=== PATIENT | female | born 1995 | race Caucasian/White ===

== ENCOUNTER 2017-05-19 02:13 | Emergency (ER) | payer OTHER ==
[~2017-05-19] VITALS: Ht 157.5 cm; Wt 63.6 kg
[2017-05-19 02:22] VITALS: BP 112/66
[2017-05-19] MEDS ORDERED: OLAN10TA3 PO (02:26)
[2017-05-19] MEDS ORDERED: OLAN5TAB2 PO (02:26)
[2017-05-19] MEDS ORDERED: OMEP20 PO (02:26)
[2017-05-19] MEDS ORDERED: VALP250 PO (02:26)
[2017-05-19] MEDS ORDERED: HALO100V4 IM (02:26)
[2017-05-19] MEDS ORDERED: DOCU250C91 PO (02:26)
[2017-05-19] MEDS ORDERED: BENZ1TAB10 PO (02:26)
[2017-05-19] MEDS ORDERED: VITAD1000 PO (02:26)
== END 2017-05-19 03:47 | disposition home or self-care (01) ==
LOC: EMS 02:15
DX: S16.1XXA Strain of muscle, fascia and tendon at neck level, initial encounter (principal); S09.90XA Unspecified injury of head, initial encounter; S80.212A Abrasion, left knee, initial encounter; F20.9 Schizophrenia, unspecified; Y04.0XXA Assault by unarmed brawl or fight, initial encounter; Y93.89 Activity, other specified; Y92.89 Other specified places as the place of occurrence of the external cause; Y99.8 Other external cause status
CPT/HCPCS: 99283

== ENCOUNTER 2018-01-11 22:19 | Emergency (ER) | payer OTHER ==
[~2018-01-11] VITALS: Ht 160 cm; Wt 77.3 kg
[~2018-01-11 22:19] MED LIST: BENZ1TAB10 PO; DOCU250C91 PO; HALO100V4 IM; OLAN10TA3 PO; OLAN5TAB2 PO; OMEP20 PO; VALP250 PO; VITAD1000 PO
[2018-01-11] MEDS ORDERED: PROPARACAINE HCL 0.5% 15 ML OPHTHALMIC SOLUTION OD ONE (22:45)
[2018-01-11] MEDS ORDERED: FLUORESCEIN SODIUM 1 MG STRIP ONE (22:55)
[2018-01-11 23:33] VITALS: BP 111/57
== END 2018-01-12 00:13 | disposition home or self-care (01) ==
LOC: EMS 22:19
DX: S05.01XA Injury of conjunctiva and corneal abrasion without foreign body, right eye, initial encounter (principal); R07.9 Chest pain, unspecified; F20.9 Schizophrenia, unspecified; Y08.89XA Assault by other specified means, initial encounter; Y93.89 Activity, other specified; Y92.89 Other specified places as the place of occurrence of the external cause; Y99.8 Other external cause status

== ENCOUNTER 2018-01-16 22:33 | Emergency (ER) | payer OTHER ==
[~2018-01-16] VITALS: Ht 172.7 cm; Wt 77.3 kg
[2018-01-16] MEDS ORDERED: DIPH50 PO (23:24)
[2018-01-16] MEDS ORDERED: LORA2TAB2 PO (23:24)
[2018-01-16] MEDS ORDERED: CILO2.5OS OD (23:24)
[2018-01-16] MEDS ORDERED: TRAZ-219 PO (23:25)
[2018-01-16] MEDS ORDERED: VALP250 PO (23:25)
[2018-01-16 23:36] LABS: BASOPHILS % (AUTO) 0.6 % (0.0-2.0); EOSINOPHILS % (AUTO) 0.3 % (1.0-6.0); HEMATOCRIT 39.6 % (36-46); HEMOGLOBIN 13.7 g/dL (12.0-16.0); LYMPHOCYTES # (AUTO) 3.2 K/uL (1.0-4.8); LYMPHOCYTES % (AUTO) 34.1 % (22.0-44.0); MEAN CORPUSCULAR HEMOGLOBIN 32.1 pg (26.0-34.0); MEAN CORPUSCULAR HGB CONC 34.7 G/dL (31.0-37.0); MEAN CORPUSCULAR VOLUME 93 fL (80-100); MONOCYTES # (AUTO) 0.8 K/uL (0.1-1.0); MONOCYTES % (AUTO) 8.6 % (2.0-9.0); NEUTROPHILS # (AUTO) 5.4 K/uL (1.8-7.7); NEUTROPHILS % (AUTO) 56.4 % (40.0-70.0); PLATELET COUNT (AUTO) 297 K/uL (150-450); RED BLOOD CELL COUNT(AUTO) 4.27 MIL/uL (4.00-5.20); RED CELL DISTRIBUTION WIDTH 13.6 % (11.5-14.5)
[2018-01-16 23:45] LABS: ANION GAP 8 mmol/L (8-16); CALCIUM, TOTAL 8.6 mg/dL (8.8-10.5); CARBON DIOXIDE 28 mmol/L (22-29); CHLORIDE 105 mmol/L (98-107); CREATININE 0.77 mg/dL (0.60-1.30); GLOMERULAR FILTR. RATE CALC > 60 mL/min (>60); GLUCOSE,RANDOM 106 mg/dL (70-110); SODIUM SERUM 141 mmol/L (136-145); UREA NITROGEN, BLOOD 6 mg/dL (7-18)
[2018-01-17 00:05] LABS: ALANINE AMINOTRANSFERASE 22 U/L (12-78); ALBUMIN 3.7 g/dL (3.4-5.0); ALKALINE PHOSPHATASE 81 U/L (46-116); ASPARTATE AMINOTRANSFERASE 18 U/L (15-37); BILIRUBIN,TOTAL 0.1 mg/dL (0.1-1.0); HCG,QUANTITATIVE < 1 mIU/mL (0-6); TOTAL PROTEIN, SERUM 7.3 g/dL (6.4-8.2); VALPROIC ACID 94 mcg/mL (50-100)
[2018-01-17 01:22] LABS: AMPHET/METH SCREEN,URINE NEGATIVE (NEGATIVE); BARBITURATE SCREEN, URINE NEGATIVE (NEGATIVE); BENZODIAZEPINES SCREEN,URINE NEGATIVE (NEGATIVE); CANNABINOID SCREEN,URINE NEGATIVE (NEGATIVE); COCAINE SCREEN,URINE NEGATIVE (NEGATIVE); METHADONE SCREEN, URINE NEGATIVE (NEGATIVE); OPIATE SCREEN,URINE NEGATIVE (NEGATIVE)
[2018-01-17 01:24] LABS: PHENCYCLIDINE SCREEN,URINE NEGATIVE (NEGATIVE)
[2018-01-17] MEDS: HALOPERIDOL LACTATE 5 MG/ML VIAL IM ONE (02:12)
[2018-01-17] MEDS: DiphenhydrAMINE HCL 50 MG/ML VIAL IM ONE (02:12)
[2018-01-17 02:21] VITALS: BP 98/60
[2018-01-17] MEDS: HALOPERIDOL 5 MG TABLET PO ONE (02:36)
[2018-01-17] MEDS: DiphenhydrAMINE HCL 25 MG CAPSULE PO ONE (02:36)
== END 2018-01-17 03:30 | disposition home or self-care (01) ==
LOC: EMS 22:34
DX: F20.9 Schizophrenia, unspecified (principal); F69 Unspecified disorder of adult personality and behavior
CPT/HCPCS: 36415; 80053; 80164; 80307; 84702; 85025; 99284; G0480; J1200; J1630

== ENCOUNTER 2019-03-16 23:52 | Emergency (ER) | payer OTHER ==
[~2019-03-16] VITALS: Ht 160 cm; Wt 77.3 kg
[~2019-03-16 23:52] MED LIST changes: +CHOL100018 PO; +CILO2.5OS OD; +DIPH50 PO; +DOCU-342 PO; -DOCU250C91 PO; +LORA-1001 PO; +TRAZ-252 PO; -VALP250 PO; +VALP250C48 PO; -VITAD1000 PO
[2019-03-17] MEDS ORDERED: HALO1 PO (00:13)
[2019-03-17] MEDS ORDERED: OLAN5TAB2 PO (00:13)
[2019-03-17] MEDS ORDERED: BENZ0.5T44 PO (00:13)
[2019-03-17] MEDS ORDERED: RANI150T7 PO (00:13)
[2019-03-17] MEDS ORDERED: VALP250C48 PO (00:13)
[2019-03-17] MEDS ORDERED: FLUORESCEIN SODIUM 1 MG STRIP OD ONE (00:45)
[2019-03-17] MEDS ORDERED: PROPARACAINE HCL 0.5% 15 ML OPHTHALMIC SOLUTION OU ONE (00:45)
[2019-03-17] MEDS ORDERED: ERYTHROMYCIN 0.5% 3.5 GM TUBE OPHTHALMIC OINTMENT OS ONE (01:00)
[2019-03-17 01:44] VITALS: BP 114/68
== END 2019-03-17 01:50 | disposition home or self-care (01) ==
LOC: EMS 23:53
DX: H10.89 Other conjunctivitis (principal); F20.9 Schizophrenia, unspecified; Z79.899 Other long term (current) drug therapy
CPT/HCPCS: 99173